=== PATIENT | female | born 1970 | race African-American/Black ===

== ENCOUNTER 2017-08-03 06:31 | Emergency (ER) | payer MEDICAID ==
[~2017-08-03] VITALS: Ht 162.6 cm; Wt 72.7 kg
[~2017-08-03 06:31] MED LIST: NO MEDS
[2017-08-03 08:40] VITALS: BP 148/94
== END 2017-08-03 09:05 | disposition home or self-care (01) ==
LOC: EMS 06:32
DX: J02.9 Acute pharyngitis, unspecified (principal); F17.210 Nicotine dependence, cigarettes, uncomplicated; Z91.040 Latex allergy status
CPT/HCPCS: 99283

== ENCOUNTER 2023-02-01 11:44 | Emergency (ER) | payer MEDICAID ==
[~2023-02-01] VITALS: Ht 165.1 cm; Wt 70.5 kg
[2023-02-01 11:50] VITALS: BP 153/98; PULSE 78; RESP 18; TEMP 98.6
[2023-02-01 12:16] LABS: COVID AG,FIA SOURCE NASAL SWAB
[2023-02-01] MEDS ORDERED: KETOROLAC TROMETHAMINE 30 MG/ML VIAL IM ONE (12:45)
[2023-02-01 12:53] LABS: INFLUENZA TYPE A NEGATIVE FOR TYPE A (NEGATIVE); INFLUENZA TYPE B NEGATIVE FOR TYPE B (NEGATIVE)
[2023-02-01] MEDS ORDERED: IBUP-1506 PO (13:14)
[2023-02-01] MEDS ORDERED: AMOX1TAB16 PO (13:14)
[2023-02-01] MEDS ORDERED: PSEU-191 PO (13:14)
== END 2023-02-01 13:34 | disposition home or self-care (01) ==
LOC: EMS 11:52
DX: J32.9 Chronic sinusitis, unspecified (principal); F17.210 Nicotine dependence, cigarettes, uncomplicated; Z91.040 Latex allergy status; Z20.822 Contact with and (suspected) exposure to COVID-19
CPT/HCPCS: 99283; 87426; 87804; 96372; J1885

== ENCOUNTER 2023-02-11 16:17 | Emergency (ER) | payer MEDICAID ==
[~2023-02-11] VITALS: Ht 167.6 cm; Wt 70.5 kg
[~2023-02-11 16:17] MED LIST changes: +AMOX1TAB16 PO; +IBUP-1506 PO; +PSEU-191 PO
[2023-02-11 16:24] VITALS: TEMP 98.2
[2023-02-11] MEDS ORDERED: SODIUM CHLORIDE 0.9% 500 ML IV ONE (18:45)
[2023-02-11] MEDS ORDERED: HYDROCODONE/ACETAMINOPHEN 5-325 MG TABLET PO ONE (18:45)
[2023-02-11] MEDS ORDERED: SODIUM CHLORIDE 0.9% 100 ML ONE (19:03)
[2023-02-11] MEDS ORDERED: IOHEXOL 350 MG/ML 100 ML VIAL ONE (19:04)
[2023-02-11 19:27] LABS: BASOPHILS % (AUTO) 0.5 % (0.0-2.0); EOSINOPHILS % (AUTO) 1.1 % (1.0-6.0); HEMATOCRIT 43.8 % (36-46); HEMOGLOBIN 14.5 g/dL (12.0-16.0); LYMPHOCYTES # (AUTO) 3.1 K/uL (1.0-4.8); LYMPHOCYTES % (AUTO) 39.7 % (22.0-44.0); MEAN CORPUSCULAR HEMOGLOBIN 30.8 pg (26.0-34.0); MEAN CORPUSCULAR HGB CONC 33.2 G/dL (31.0-37.0); MEAN CORPUSCULAR VOLUME 93 fL (80-100); MONOCYTES # (AUTO) 0.7 K/uL (0.1-1.0); MONOCYTES % (AUTO) 8.5 % (2.0-9.0); NEUTROPHILS # (AUTO) 3.9 K/uL (1.8-7.7); NEUTROPHILS % (AUTO) 50.2 % (40.0-70.0); PLATELET COUNT (AUTO) 345 K/uL (150-450); RED BLOOD CELL COUNT(AUTO) 4.72 MIL/uL (4.00-5.20); RED CELL DISTRIBUTION WIDTH 14.5 % (11.5-14.5); WHITE BLOOD COUNT (AUTO) 7.8 K/uL (4.5-11.0)
[2023-02-11] MEDS ORDERED: AMPICILLIN SODIUM/SULBACTAM NA 3 GM in SODIUM CHLORIDE 0.9% 100 ML IV ONE (19:30)
[2023-02-11 19:54] LABS: ANION GAP 12 mmol/L (8-16); CALCIUM, TOTAL 9.5 mg/dL (8.8-10.5); CARBON DIOXIDE 28 mmol/L (22-29); CHLORIDE 99 mmol/L (98-107); CREATININE 0.77 mg/dL (0.60-1.30); GLOMERULAR FILTR. RATE CALC > 60 mL/min (>60); GLUCOSE,RANDOM 83 mg/dL (70-110); POTASSIUM 3.2 mmol/L (3.5-5.1); SODIUM SERUM 139 mmol/L (136-145); UREA NITROGEN, BLOOD 11 mg/dL (7-18)
[2023-02-11 20:00] LABS: ALANINE AMINOTRANSFERASE 21 U/L (12-78); ALBUMIN 3.9 g/dL (3.4-5.0); ALKALINE PHOSPHATASE 130 U/L (46-116); ASPARTATE AMINOTRANSFERASE 25 U/L (15-37); BILIRUBIN,TOTAL 0.4 mg/dL (0.1-1.0); TOTAL PROTEIN, SERUM 8.1 g/dL (6.4-8.2)
[2023-02-11 20:50] VITALS: BP 141/76; PULSE 61; RESP 16
[2023-02-11] MEDS ORDERED: HYDROmorphone HCL 2 MG/ML SYRINGE IVP ONE (21:15)
[2023-02-11] MEDS ORDERED: ONDANSETRON HCL 4 MG/2 ML VIAL IVP ONE (22:00)
[2023-02-11] MEDS ORDERED: TRAM-559 PO (23:02)
[2023-02-11] MEDS ORDERED: AMOX1TAB16 PO (23:02)
== END 2023-02-11 23:20 | disposition home or self-care (01) ==
LOC: EMS 16:18
DX: L03.213 Periorbital cellulitis (principal); H00.036 Abscess of eyelid left eye, unspecified eyelid; J32.9 Chronic sinusitis, unspecified; F17.210 Nicotine dependence, cigarettes, uncomplicated; Z91.040 Latex allergy status
CPT/HCPCS: 99285; 96365; 70481; 96361; 96375; 80053; 85025; 87040; 36415; J1170; J2405; J0295; Q9967; J7050; J7040